=== PATIENT | female | born 1970 | race Caucasian/White ===

== ENCOUNTER 2018-11-08 05:57 | Day surgery (SDC) | payer BC ==
[~2018-11-08] VITALS: Ht 152.4 cm; Wt 80.5 kg
[~2018-11-08 05:57] MED LIST: ADAL40PE SQ; HYDR-3164 PO; IBUP200T44 PO; ONDA4TAB7 PO
[2018-11-08] MEDS ORDERED: IOHEXOL 300 MG/ML 50 ML VIAL. ONE (06:24)
[2018-11-08] MEDS ORDERED: BUPIVACAINE MPF 0.5% 30 ML VIAL. ONE (06:24)
[2018-11-08] MEDS ORDERED: SURGICEL HEMOSTAT 4X8 EACH. ONE (06:24)
[2018-11-08] MEDS ORDERED: PROCHLORPERAZINE 10 MG/2 ML VIAL. IV PRN (07:00)
[2018-11-08] MEDS ORDERED: fentaNYL PF VIAL 100 MCG/2 ML VIAL IV PRN (07:00)
[2018-11-08] MEDS ORDERED: HYDROmorphone 2 MG/ML VIAL IV PRN (07:00)
[2018-11-08] MEDS ORDERED: IV RINGERS,LACTATED 1000ML 1,000 ML IV SCH (07:00)
[2018-11-08] MEDS ORDERED: MORPHINE SULFATE 2 MG/ML VIAL. IV PRN (07:00)
[2018-11-08] MEDS ORDERED: ONDANSETRON PF 4 MG/2 ML VIAL. IV PRN (07:00)
[2018-11-08] MEDS ORDERED: fentaNYL PF VIAL 100 MCG/2 ML VIAL ONE ×3 (07:03→08:19)
[2018-11-08] MEDS ORDERED: ROCURONIUM 50 MG/5 ML VIAL. ONE (07:03)
[2018-11-08] MEDS ORDERED: PROPOFOL 20 ML IV ONE (07:04)
[2018-11-08] MEDS ORDERED: ONDANSETRON PF 4 MG/2 ML VIAL. ONE (07:04)
[2018-11-08] MEDS ORDERED: DEXAMETHASONE SOD PHOS 4 MG/ML VIAL ONE (07:04)
[2018-11-08] MEDS ORDERED: SEVOFLURANE 61 TO 120 MINUTES. IH ONE ×2 (07:04→07:53)
[2018-11-08] MEDS ORDERED: LIDOCAINE 2% PF 5 ML VIAL. ONE (07:04)
[2018-11-08] MEDS ORDERED: ePHEDrine PF IN SALINE 50 MG/10 ML SYRINGE. IV ONE (07:31)
[2018-11-08] MEDS ORDERED: NEOSTIGMINE METHYLSULFATE 5 MG/5 ML SYRINGE. ONE (07:34)
[2018-11-08] MEDS ORDERED: GLYCOPYRROLATE 1 MG/5 ML VIAL. ONE (07:34)
[2018-11-08] MEDS ORDERED: ESMOLOL 100 MG/10 ML VIAL. IVP ONE (07:44)
--- NOTE | 2018-11-08 08:07 | RAD ---
Examination: CHOLANGIOGRAM INTRAOPERATIVE History: Intraoperative cholangiogram Comparison/Correlation: None Findings: Intraoperative cholangiography was performed utilizing 0.19 minutes of fluoroscopy. 2 images were provided for interpretation. Right upper quadrant cholecystectomy clips are present. Contrast is noted within common bile duct. There is no stricture identified in the common bile duct on images provided. No extravasation of contrast about the cystic duct remnant. No significant biliary dilatation. Intrahepatic biliary tree is only partially opacified on images provided. Impression: Cholecystectomy. No extravasation of contrast about the cystic duct remnant. No common bile duct stricture or suspicious filling defect. Electronically signed by: Usman Arreola MD (11/08/2018 8:04 AM) [facility]
--- NOTE | 2018-11-08 08:15 | PDOC4 ---
Operative Note Operative Note Operative Note: Preoperative Diagnosis: Symptomatic cholelithiasis Postoperative Diagnosis: Same Procedure: Laparoscopic cholecystectomy with intraoperative cholangiogram Surgeons: Marin Figure Refinisher And Repairer: Bev SIFUENTES Anesthesia: Gen. Estimated Blood Loss: 25 mL Specimen: Gallbladder to pathology Drains: None Complications: None Indications: The patient is a 48-year-old female who is been experiencing recurrent upper abdominal pain consistent with biliary colic. Surgical treatment was offered by means of a laparoscopic cholecystectomy. The risks of surgery were discussed which include bleeding, infection, bile duct injury, bile leak, pain, the potential for additional surgeries or procedures. The patient understands and would like to proceed. Description: The patient was taken to the operating room and laid supine on the operating table. General anesthesia was performed. The abdomen was prepped with ChloraPrep and draped in a standard surgical fashion. A small infraumbilical incision was made with a scalpel. The Veress needle was then inserted and a pneumoperitoneum was then created. A 5 mm trocar was then inserted and the laparoscope was introduced. In the upper midabdomen a 5 mm trocar was inserted and in the right upper quadrant two 2.3 mm mini lap graspers were inserted. The gallbladder was retracted cephalad. The cystic duct was dissected free from surrounding tissues. One clip was placed on the duct near the gallbladder junction. An opening was made in the duct and a cholangiocatheter placed within and secured with a clip. Using contrast dye and fluoroscopy an intraoperative cholangiogram was performed that appeared unremarkable. The clip and catheter were then withdrawn. Three clips were placed on the cystic duct and it was divided. The cystic artery was then identified, dissected free, doubly clipped and divided as well. The gallbladder was then mobilized away from the liver with cautery. The umbilical 5 millimeter trocar was exchanged for an 11 millimeter trocar. The gallbladder was then placed in an endoscopic bag and extracted at the umbilical trocar site. The fascia there was closed with an 0 Vicryl suture. All blood and irrigation fluid was suctioned and hemostasis was good. The remaining ports were removed and the pneumoperitoneum was relieved. The skin incisions were injected with half percent Marcaine with epinephrine, and all were closed using 4-0 Monocryl suture. Steri-Strips and dressings were then applied. The patient tolerated the procedure well and was sent to the recovery room in stable condition. At the end of the case all counts were correct. LUX AC MD Nov 08, 2018 08:15
--- NOTE | 2018-11-08 08:17 | DISCH ---
DISCHARGE INSTRUCTIONS Condition on Discharge Condition on Discharge: Stable Activity After Discharge Activity Instructions for Disc: Other, see below (no lifting over 20 lbs X 2 weeks) Diet after Discharge Diet after Discharge: Regular Wound Incision Care Wound/Incision Care: Other, see below (may remove bandaids and shower tomorrow, steristrips fall off on their own) Follow-Up Follow up with: Dr Ac in 2 weeks in office, call for appt [phone] LUX AC MD Nov 08, 2018 08:17
[2018-11-08] MEDS ORDERED: PROCHLORPERAZINE 10 MG/2 ML VIAL. ONE (08:20)
[2018-11-08] MEDS: fentaNYL PF VIAL 100 MCG/2 ML VIAL IV PRN ×2 (08:25→08:30)
[2018-11-08] MEDS ORDERED: FAMOTIDINE 20 MG/2 ML VIAL ONE (08:42)
[2018-11-08] MEDS ORDERED: FAMOTIDINE 20 MG/2 ML VIAL IVP ONE (09:00)
[2018-11-08 09:30] VITALS: BP 144/76
--- NOTE | 2018-11-12 18:06 | PATHOLOGY ---
[facility] Accession Number: [id number] . 01 Material submitted: . gallbladder - GALLBLADDER . 01 Clinical history: . Gallstones . 02 Diagnosis: Gallbladder, cholecystectomy: - Cholelithiasis. - Chronic cholecystitis. (JPM:erika; 11/12/2018) QMS/11/12/2018 . 02 Comment: There is no evidence of malignancy. . 02 Electronically signed: . Italo Cormier MD, Pathologist NPI- [id number] . 01 Gross description: . The specimen is received in formalin, labeled "Esme, Kindel, gallbladder and contents", is intact, distended gallbladder measuring 8.0 cm in length and 3.3 cm in maximum diameter with a smooth, glistening and green-garcia serosa. The cystic duct is patent. The gallbladder lumen contains yellow-green, viscous bile and four multifaceted erickson-yellow calculi measuring 4.3 x 3.5 x 1.5 cm in aggregate. The mucosa is green and with no cholesterolosis and a sinus filled with viscous bile. The wall is 0.1 cm in average thickness. Representatively submitted in A1. ([facility]; 11/08/2018) SHS/SHS . 02 Pathologist provided ICD-10: K80.10 . 02 CPT . 786951 Specimen Comment: A courtesy copy of this report has been sent to Specimen Comment: [phone], . Specimen Comment: Report sent to / DR GOTTI Performed at: 01 [facility] [address], [place], [place] [id number] MD Sarthak Rodriguez MD Phone: [phone] Performed at: 02 [facility] [address] [place], [place] [id number] MD Italo Cormier MD Phone: [phone]
== END 2018-11-08 10:25 | disposition home or self-care (01) ==
LOC: SURG 05:57
PROVIDERS: ATTEND Surgery
DX: K81.1 Chronic cholecystitis (principal); Z98.890 Other specified postprocedural states; Z90.3 Acquired absence of stomach [part of]; Z87.891 Personal history of nicotine dependence; Z88.0 Allergy status to penicillin
CPT/HCPCS: 47563; 74300; 88304; A7015; J0171; J0780; J1100; J1956; J2001; J2270; J2405; J2704; J2710; J3010; J3490; J7030; Q9967